=== PATIENT | male | born 1950 | race Hispanic/Latino ===

== ENCOUNTER → 2024-10-07 | Outpatient (CLI) | payer MEDICARE ==
--- NOTE | 2024-10-07 14:51 | HMCIMG ---
ABD 1VW REASON: ABDOMINAL PAIN FINDINGS: Single image of the abdomen was obtained. Bowel gas pattern is normal. Bones and soft tissues appear unremarkable. There are no abnormal calcifications. There is no evidence of foreign body. IMPRESSION: 1. Negative single view of the abdomen.
== END | disposition home or self-care (01) ==
LOC: RAH 13:48
PROVIDERS: ATTEND Family Medicine
DX: R10.9 Unspecified abdominal pain (principal)
CPT/HCPCS: 74018

== ENCOUNTER → 2024-11-21 | Outpatient (CLI) | payer MEDICARE | END | disposition home or self-care (01) | LOC: SHCH 08:12 → EDUNIT# 08:30 | PROVIDERS: ATTEND Internal Medicine Cardiovascular Disease | DX: I07.1 Rheumatic tricuspid insufficiency (principal); R07.9 Chest pain, unspecified; R94.31 Abnormal electrocardiogram [ECG] [EKG]; R06.02 Shortness of breath | CPT/HCPCS: 93306 ==